=== PATIENT | male | born 1975 | race African-American/Black ===

== ENCOUNTER 2020-04-15 03:16 | Inpatient (IN) | payer MEDICAID, OTHER ==
[~2020-04-15] VITALS: Ht 180.3 cm; Wt 106.6 kg
[2020-04-15] MEDS ORDERED: TETANUS, DIPHTHERIA, PERTUSSIS VAC/PF 0.5ML (>7YR OLD) IM ONE (03:45)
[2020-04-15] MEDS ORDERED: SULFAMETHOXAZOLE/TRIMETHOPRIM 800/160MG TABLET PO ONE (03:45)
[2020-04-15] MEDS ORDERED: CEPHALEXIN 250MG CAPSULE PO ONE (03:45)
[2020-04-15] MEDS ORDERED: IBUPROFEN 600MG TABLET PO ONE (03:45)
[2020-04-15] MEDS ORDERED: HYDROCODONE/ACETAMINOPHEN 5/325MG TABLET PO ONE (03:45)
[2020-04-15] MEDS ORDERED: BACITRACIN ZINC OINT UDPKT TOP ONE (04:30)
[2020-04-15] MEDS ORDERED: MORPHINE SULFATE 2 MG/ML CPJ (NOT FOR IM USE) IV ONE (04:45)
[2020-04-15 05:01] LABS: HEMATOCRIT. 37.3 % (42.0-52.0); HEMOGLOBIN. 12.6 g/dL (14.0-18.0); MEAN CORPUSCULAR HEMOGLOBIN 27.3 pg (28.0-32.0); MEAN CORPUSCULAR VOLUME 80.8 fL (80.0-94.0); MEAN PLATELET VOLUME 6.7 fl (7.4-10.4); PLATELET 284 x1000/uL (130-400); RED BLOOD CELL COUNT 4.61 mill/uL (4.7-6.1); RED CELL DISTRIBUTION WIDTH 14.5 % (11.6-14.6)
[2020-04-15 05:10] LABS: CHLORIDE 102 mEq/L (98-107)
[2020-04-15 05:45] LABS: PLATELET ESTIMATE NORMAL
[2020-04-15] MEDS ORDERED: ONDANSETRON HCL 4MG/2ML INJ IV PRN (09:45)
[2020-04-15] MEDS ORDERED: ACETAMINOPHEN 325MG TABLET PO PRN (09:45)
[2020-04-15] MEDS ORDERED: CLONIDINE 0.1MG TABLET PO PRN (09:45)
[2020-04-15] MEDS ORDERED: KETOROLAC 30MG/ML VIAL IV PRN (09:45)
[2020-04-15] MEDS ORDERED: ENOXAPARIN 40MG/0.4ML SYR SUBCUT SCH (09:45)
[2020-04-15] MEDS ORDERED: ZOLPIDEM TARTRATE 5MG TABLET PO PRN (09:45)
[2020-04-15] MEDS ORDERED: POTASSIUM CHLORIDE 20MEQ TABLET SR PO NR (09:45)
[2020-04-15] MEDS ORDERED: DEXTROSE 50% WATER 50ML SYRINGE IV PRN (09:45)
[2020-04-15] MEDS ORDERED: VANCOMYCIN 1 G PREMIX 200 ML IV SCH (09:45)
[2020-04-15] MEDS ORDERED: DIPHENHYDRAMINE 50MG/ML VIAL IV PRN (09:45)
[2020-04-15] MEDS ORDERED: HYDROCODONE/ACETAMINOPHEN 5/325MG TABLET PO PRN (09:45)
[2020-04-15] MEDS ORDERED: HYDR25TA MT (11:54)
[2020-04-15 11:55] VITALS: BP 126/72
[2020-04-15 12:00] VITALS: BP 129/69
[2020-04-15] MEDS ORDERED: VANCOMYCIN 1250MG in DEXTROSE 5% WATER 250ML IV SCH (12:00)
[2020-04-15] MEDS ORDERED: BLOOD SUGAR DIAGNOSTIC STRIP TEST SCH (12:20)
[2020-04-15] MEDS ORDERED: INSULIN LISPRO 100 UNITS/ML SUBCUT SCH (12:50)
[2020-04-15] MEDS: VANCOMYCIN 1250MG in DEXTROSE 5% WATER 250ML IV SCH ×2 (13:55→21:03)
[2020-04-15] MEDS: SODIUM CHLORIDE 0.9% INJ 3ML FLUSH IVF SCH ×2 (14:15→21:05)
[2020-04-15 16:00] VITALS: BP 122/54
[2020-04-15] MEDS: ACETAMINOPHEN 325MG TABLET PO PRN (16:08)
[2020-04-15] MEDS ORDERED: MAGNESIUM 2 G PREMIX 50 ML IV NR (18:00)
[2020-04-15 20:00] VITALS: BP 115/53
[2020-04-15] MEDS: ENOXAPARIN 30MG/0.3ML SYR SUBCUT SCH (21:04)
[2020-04-15] MEDS: DIVALPROEX SODIUM 500MG DR TABLET PO SCH (21:04)
[2020-04-15] MEDS: QUETIAPINE FUMARATE 50MG TABLET PO SCH (21:04)
[2020-04-16] VITALS: BP 113/59
[2020-04-16] MEDS: ACETAMINOPHEN 325MG TABLET PO PRN (00:26)
[2020-04-16 04:00] VITALS: BP 120/55
[2020-04-16] MEDS: VANCOMYCIN 1250MG in DEXTROSE 5% WATER 250ML IV SCH ×2 (04:30→11:56)
[2020-04-16] MEDS: SODIUM CHLORIDE 0.9% INJ 3ML FLUSH IVF SCH ×3 (05:26→21:33)
[2020-04-16 06:29] LABS: CHLORIDE 106 mEq/L (98-107)
[2020-04-16 06:43] LABS: PHOSPHORUS 2.3 mg/dL (2.5-4.9)
[2020-04-16 07:27] LABS: HEMATOCRIT. 38.9 % (42.0-52.0); MEAN CORPUSCULAR HEMOGLOBIN 27.4 pg (28.0-32.0); MEAN CORPUSCULAR VOLUME 82.1 fL (80.0-94.0); MEAN PLATELET VOLUME 7.6 fl (7.4-10.4); PLATELET 253 x1000/uL (130-400); RED BLOOD CELL COUNT 4.74 mill/uL (4.7-6.1); RED CELL DISTRIBUTION WIDTH 14.9 % (11.6-14.6)
[2020-04-16 08:00] VITALS: BP 101/57
[2020-04-16] MEDS: DIVALPROEX SODIUM 500MG DR TABLET PO SCH ×2 (10:00→21:32)
[2020-04-16] MEDS: QUETIAPINE FUMARATE 50MG TABLET PO SCH ×2 (10:02→21:32)
[2020-04-16] MEDS: ENOXAPARIN 30MG/0.3ML SYR SUBCUT SCH ×2 (10:03→21:32)
[2020-04-16 11:42] LABS: PLATELET ESTIMATE NORMAL
[2020-04-16 12:00] VITALS: BP 124/65
[2020-04-16] MEDS ORDERED: POTASSIUM PHOS,M-BASIC-D-BASIC 15 MMOL in DEXT 5% WATER 245 ML IV SCH (13:00)
[2020-04-16 16:00] VITALS: BP 117/62
[2020-04-16 16:18] LABS: *AMPHETAMINES SCREEN URINE PRESUMTIVE POSITIVE (NEGATIVE); *BARBITURATES SCREEN URINE NEGATIVE (NEGATIVE)
[2020-04-16 16:19] LABS: *COCAINE SCREEN URINE NEGATIVE (NEGATIVE); CANNABINOID URINE SCREEN PRESUMTIVE POSITIVE (NEGATIVE); METHADONE URINE SCREEN NEGATIVE (NEGATIVE); OPIATES URINE SCREEN NEGATIVE (NEGATIVE); PHENCYCLIDINE URINE SCREEN NEGATIVE (NEGATIVE)
[2020-04-16 16:21] LABS: *BENZODIAZEPINES SCREEN URINE NEGATIVE (NEGATIVE)
[2020-04-16] MEDS ORDERED: CEFTRIAXONE 1 G PREMIX 50 ML IV SCH (16:30)
[2020-04-16] MEDS: CEFTRIAXONE 1 G PREMIX 50 ML IV SCH (17:43)
[2020-04-16] MEDS: VANCOMYCIN 1500MG in DEXTROSE 5% WATER 250ML IV SCH (17:44)
[2020-04-16 20:00] VITALS: BP 152/74
[2020-04-17] VITALS: BP 112/58
[2020-04-17] MEDS: VANCOMYCIN 1500MG in DEXTROSE 5% WATER 250ML IV SCH ×2 (02:29→10:02)
[2020-04-17 04:00] VITALS: BP 113/55
[2020-04-17] MEDS: SODIUM CHLORIDE 0.9% INJ 3ML FLUSH IVF SCH ×3 (06:44→21:29)
[2020-04-17 07:24] LABS: HEMATOCRIT. 39.2 % (42.0-52.0); HEMOGLOBIN. 12.8 g/dL (14.0-18.0); MEAN CORPUSCULAR HEMOGLOBIN 26.8 pg (28.0-32.0); MEAN CORPUSCULAR VOLUME 82.1 fL (80.0-94.0); MEAN PLATELET VOLUME 7.6 fl (7.4-10.4); PLATELET 257 x1000/uL (130-400); RED BLOOD CELL COUNT 4.78 mill/uL (4.7-6.1); RED CELL DISTRIBUTION WIDTH 14.7 % (11.6-14.6)
[2020-04-17 07:54] LABS: CHLORIDE 105 mEq/L (98-107)
[2020-04-17 08:04] LABS: CREATINE KINASE 215 IU/L (39-308)
[2020-04-17] MEDS: QUETIAPINE FUMARATE 50MG TABLET PO SCH ×2 (09:26→20:35)
[2020-04-17] MEDS: DIVALPROEX SODIUM 500MG DR TABLET PO SCH ×2 (09:26→20:35)
[2020-04-17] MEDS: ENOXAPARIN 30MG/0.3ML SYR SUBCUT SCH ×2 (09:27→20:36)
[2020-04-17 11:53] LABS: PLATELET ESTIMATE NORMAL
[2020-04-17] MEDS ORDERED: CLINDAMYCIN 600 MG in DEXTROSE 5% WATER 50 ML IV SCH (14:15)
[2020-04-17] MEDS: CLINDAMYCIN 600MG PREMIX 50 ML IV SCH ×2 (16:24→23:43)
[2020-04-17] MEDS: CEFTRIAXONE 1 G PREMIX 50 ML IV SCH (18:02)
[2020-04-17] MEDS: VANCOMYCIN 1,750 MG in DEXT 5% WATER 500 ML IV SCH (18:49)
[2020-04-17 20:00] VITALS: BP 127/71
[2020-04-18] VITALS: BP 115/66
[2020-04-18] MEDS: VANCOMYCIN 1,750 MG in DEXT 5% WATER 500 ML IV SCH ×2 (02:48→10:00)
[2020-04-18 04:00] VITALS: BP 125/65
[2020-04-18 06:26] LABS: CHLORIDE 106 mEq/L (98-107)
[2020-04-18 06:33] LABS: BASOPHILS % 0.4 % (0.0-2.0); LYMPHOCYTES % 9.5 % (20.0-50.0); MEAN CORPUSCULAR HEMOGLOBIN 26.5 pg (28.0-32.0); MEAN CORPUSCULAR VOLUME 81.8 fL (80.0-94.0); MEAN PLATELET VOLUME 7.2 fl (7.4-10.4); MONOCYTES % 8.9 % (2.0-8.0); NEUTROPHILS % 75.2 % (40.0-76.0); PLATELET 300 x1000/uL (130-400); RED BLOOD CELL COUNT 4.89 mill/uL (4.7-6.1)
[2020-04-18] MEDS: SODIUM CHLORIDE 0.9% INJ 3ML FLUSH IVF SCH ×2 (06:41→14:00)
[2020-04-18 08:00] VITALS: BP 129/74
[2020-04-18] MEDS: CLINDAMYCIN 600MG PREMIX 50 ML IV SCH ×2 (08:59→16:00)
[2020-04-18] MEDS: DIVALPROEX SODIUM 500MG DR TABLET PO SCH (09:00)
[2020-04-18] MEDS: ENOXAPARIN 30MG/0.3ML SYR SUBCUT SCH (09:00)
[2020-04-18] MEDS: QUETIAPINE FUMARATE 50MG TABLET PO SCH (09:00)
[2020-04-18 12:00] VITALS: BP 153/83
[2020-04-18 16:00] VITALS: BP 126/67
[2020-04-18 16:30] VITALS: BP_SYST 126; BP_SYST 153; BP_DIAS 67; BP_DIAS 88
== END 2020-04-18 17:34 | disposition home or self-care (01) | DRG 720 ==
LOC: ER 03:16 → 6EST 05:07 → EDBEDREQ 05:08 → EDBEDREQTM 05:08 → ENRESERV 09:59
PROVIDERS: ADMIT Internal Medicine; ATTEND Internal Medicine
DX: A41.9 Sepsis, unspecified organism (principal); E87.6 Hypokalemia; L03.115 Cellulitis of right lower limb; S81.811A Laceration without foreign body, right lower leg, initial encounter; E11.9 Type 2 diabetes mellitus without complications; I10 Essential (primary) hypertension; F31.9 Bipolar disorder, unspecified; F99 Mental disorder, not otherwise specified; R60.9 Edema, unspecified; F15.10 Other stimulant abuse, uncomplicated; F12.10 Cannabis abuse, uncomplicated; W34.00XA Accidental discharge from unspecified firearms or gun, initial encounter; Z59.0 Homelessness; Z83.3 Family history of diabetes mellitus; V18.4XXA Pedal cycle driver injured in noncollision transport accident in traffic accident, initial encounter; Y93.55 Activity, bike riding; Y92.89 Other specified places as the place of occurrence of the external cause; Y99.8 Other external cause status
CPT/HCPCS: 36415; 73590; 73610; 80048; 80053; 80202; 80305; 82550; 82962; 83036; 83735; 84100; 85025; 87070; 87077; 90715; 93970; 99285; J0696; J1650; J3370; J3475; J3490; J7060